=== PATIENT | female | born 1945 | race Two or more races ===

== ENCOUNTER 2020-03-22 08:38 | Emergency (ER) | payer OTHER ==
[~2020-03-22] VITALS: Ht 157.5 cm; Wt 54.4 kg
[2020-03-22] MEDS ORDERED: SYNTHROID75 MCG (08:50)
[2020-03-22] MEDS ORDERED: INTESTINEX680 M1 PO (16:20)
[2020-03-22] MEDS ORDERED: KETO10TA2 PO (16:20)
[2020-03-22] MEDS ORDERED: PEPCID20 MG PO (16:20)
[2020-03-22] MEDS ORDERED: FLAGYL500MG PO (16:20)
[2020-03-22] MEDS ORDERED: CIPRO500 MG PO (16:20)
== END 2020-03-22 18:11 | disposition home or self-care (01) ==
LOC: ER 08:38
DX: R10.13 Epigastric pain (principal); Z20.828 Contact with and (suspected) exposure to other viral communicable diseases